=== PATIENT | female | born 1990 ===

== ENCOUNTER → 2018-01-29 | Emergency (ER) | payer OTHER ==
[~2018-01-29] VITALS: Ht 170.2 cm; Wt 61.2 kg
[~2018-01-29] MED LIST: MOTRIN800 MG PO
== END | disposition home or self-care (01) ==
LOC: ER 14:18
DX: S61.021A Laceration with foreign body of right thumb without damage to nail, initial encounter (principal); W26.0XXA Contact with knife, initial encounter; Y93.89 Activity, other specified; Y92.69 Other specified industrial and construction area as the place of occurrence of the external cause; Y99.8 Other external cause status